=== PATIENT | male | born 1985 | race Caucasian/White ===

== ENCOUNTER 2018-06-20 08:22 | Inpatient (IN) | payer OTHER ==
[~2018-06-20] VITALS: Ht 154.9 cm; Wt 75.4 kg
--- OUTSIDE RECORDS SUMMARY | 2018-06-20 08:24 | XMS REPORT | Clinical Summary ---
Author Author [facility] Address Unknown Phone Unavailable Care Team Providers Care Farmer General Name Role Phone PCP Unavailable Allergies Not on File Medications Not on file Active Problems Not on file Social History Date Tobacco Use Types Packs/Day Years Used Never Assessed Sex Assigned at Date Recorded Not on file Industry Job Start Date Occupation Not on file Not on file Not on file Travel End Travel History Travel Start No recent travel history available. Last Filed Vital Signs Not on file Plan of Treatment Not on file Results Not on fileafter 06/19/2017
[2018-06-20] MEDS ORDERED: PANTOPRAZOLE 40 MG 10ML VIAL IV STA (08:30)
[2018-06-20] MEDS ORDERED: DONNATAL/LIDOCAINE/MAALOX 30 ML SUSP PO ONE (08:30)
[2018-06-20] MEDS ORDERED: SODIUM CHLORIDE 0.9% 1000ML 1,000 ML IV STA (08:30)
[2018-06-20 09:02] LABS: BASOPHILS % 0.2 % (0.0-1.0); BILIRUBIN,URINE NEGATIVE (NEGATIVE); CLARITY,URINE SL CLOUDY (CLEAR); COLOR,URINE YELLOW (YELLOW); EOSINOPHILS % 0.1 % (0.0-6.0); HEMATOCRIT 47.2 % (38.2-49.6); HEMOGLOBIN 16.9 g/dL (14.0-18.0); KETONES,URINE NEGATIVE (NEGATIVE); LEUKOCYTE ESTERASE ,URINE NEGATIVE (NEGATIVE); LYMPHOCYTES # (AUTO) 0.9 (1.0-3.2); LYMPHOCYTES % 5.6 % (18.0-39.1); MEAN CORPUSCULAR HEMOGLOBIN 33.1 pg (28-32); MEAN CORPUSCULAR HGB CONC 35.8 g/dL (31-35); MEAN CORPUSCULAR VOLUME 92.4 fL (81-99); MONOCYTES # (AUTO) 0.4 (0.2-0.8); MONOCYTES % 2.3 % (4.4-11.3); NEUTROPHILS % 91.3 % (38.7-80.0); NITRITE,URINE NEGATIVE (NEGATIVE); PLATELET COUNT 292 x10e3/uL (140-360); PROTEIN,URINE DIPSTICK NEGATIVE (NEGATIVE); RED BLOOD COUNT 5.11 x10e6/uL (4.3-5.7); RED CELL DISTRIBUTION WIDTH 13.2 % (11.7-14.4); URINE UROBILINOGEN 0.2 mg/dL (0.2 - 1)
[2018-06-20 09:15] LABS: BACTERIA,URINE RARE /HPF; EPITHELIAL CELLS,URINE RARE /LPF; WBC,URINE (MAN) 0-5 /HPF (0-5)
--- NOTE | 2018-06-20 09:20 | Diagnostic Imaging Report ---
Frontal and lateral views of the chest. HISTORY: Coughing up blood, chest pain at 4:00 AM COMPARISON: None available. DISCUSSION: Soft tissue attenuation partially limits sensitivity of the exam. Lungs: Low lung volumes result in bibasilar vascular crowding, accentuation of the pulmonary interstitial markings, central pulmonary vasculature, and the cardiac silhouette. Allowing for these limitations, the findings are as follows: Diffuse bilateral symmetric increase interstitial and patchy airspace opacities. Pleura: No pleural effusion or pneumothorax. Heart and mediastinum: The cardiac silhouette and central pulmonary vasculature are enlarged. Bones and soft tissues: On the lateral view, mild age-indeterminate anterior wedge compression deformity of a vertebral body near the thoracolumbar junction. IMPRESSION: Bilateral symmetric patchy interstitial and airspace opacities in the setting of cardiomegaly and central pulmonary vascular congestion, differential considerations include: volume overload resulting in moderate pulmonary edema, pulmonary hemorrhage given the provided history, and multifocal/atypical pneumonia. Signed by: Dr. Darren Grider D.O., M.M.M. on 06/20/2018 9:17 AM
[2018-06-20] MEDS ORDERED: LIDOCAINE VISC 2% SOLN 15 ML UDC ONE (09:28)
[2018-06-20] MEDS ORDERED: MAGNESIUM/ALUMINUM/SIMETHICONE 30 ML UDC ONE (09:28)
[2018-06-20] MEDS ORDERED: BELLADONNA ALK/PHENOBARBITAL 5 ML UDC ONE (09:28)
[2018-06-20 09:43] LABS: ALANINE AMINOTRANSFERASE 41 IU/L (0-55); ALBUMIN 3.4 g/dL (3.5-5.0); ALKALINE PHOSPHATASE 76 IU/L (40-150); BLOOD UREA NITROGEN 17 mg/dL (7-26); BUN/CREATININE RATIO 13 (6-25); CALCIUM 8.6 mg/dL (8.4-10.2); CARBON DIOXIDE 20 mmol/L (22-29); CHLORIDE 107 mmol/L (98-107); CREATININE, SERUM 1.27 mg/dL (0.72-1.25); EST GLOMERULAR FILTRATION RATE > 60 ML/MIN (60-); GLUCOSE 121 mg/dL (74-118); LIPASE 32 U/L (8-78); SODIUM 137 mmol/L (136-145)
--- NOTE | 2018-06-20 12:34 | Diagnostic Imaging Report ---
EXAM: CT of the abdomen and pelvis WITH contrast HISTORY: Vomiting blood, query upper GI bleed, diarrhea, cough COMPARISON: None available. TECHNIQUE: The abdomen and pelvis were scanned utilizing a multidetector helical scanner. Coronal and sagittal reformats are provided. PROTOCOL: Routine IV CONTRAST: 100 cc of Isovue-370. ORAL CONTRAST: Water RADIATION DOSE: Total DLP: 636.59 mGy*cm Estimated effective dose: (DLP x 0.015 x size factor) Dose modulation, iterative reconstruction, and/or weight based adjustment of the mA/kV was utilized to reduce the radiation dose to as low as reasonably achievable. COMPLICATIONS: None FINDINGS: Motion artifact partially limits sensitivity and specificity of the exam. LOWER THORAX: Prominent patchy left lung base interstitial and airspace opacities, in a tree-in-bud type configuration. Low density fluid within the distal esophagus. HEPATOBILIARY: No mass. Diffusely decreased attenuation of the liver relative to the spleen. No biliary dilation. No stone. SPLEEN: No splenomegaly. Multiple densities, likely calcified granulomas. PANCREAS: No focal masses or ductal dilatation. ADRENALS: No discrete adrenal nodule. KIDNEYS/URETERS: A punctate calcific density near the inferior pole of the left kidney. No hydronephrosis or definite solid mass lesions. PELVIC ORGANS/BLADDER: The visualized pelvic organs appear unremarkable. GI TRACT: No bowel dilation. Questionable mild thickening of the distal esophageal wall. The stomach is partially decompressed, which limits evaluation. The appendix is normal. PERITONEUM / RETROPERITONEUM: No free air or fluid. LYMPH NODES: No pathologically enlarged lymph node. VESSELS: Unremarkable. BONES: No aggressive osseous lesion or acute fracture. SOFT TISSUES: Unremarkable. IMPRESSION: 1. Left lung base patchy interstitial and airspace opacities, consider atypical pneumonia, pulmonary hemorrhage, and/or aspiration in the appropriate setting. 2. Questionable mild wall thickening of the distal esophagus, which may reflect a nonspecific esophagitis. 3. Probable gastroesophageal reflux. 4. Hepatic steatosis. Signed by: Dr. Darren Grider D.O., M.M.M. on 06/20/2018 12:31 PM
[2018-06-20] MEDS ORDERED: SODIUM CHLORIDE 0.9% 50ML 50 ML ONE (12:40)
[2018-06-20] MEDS ORDERED: IOPAMIDOL 370 MG/ML 200 ML INFUS..BTL INJ ONE (12:40)
--- NOTE | 2018-06-20 13:03 | Diagnostic Imaging Report ---
CT CHEST WITHOUT CONTRAST HISTORY: Throwing up blood, pulmonary hemorrhage COMPARISON: Chest radiograph June 20, 2018, CT of the abdomen and pelvis June 20, 2018. TECHNIQUE: CT scan of the chest WITHOUT intravenous contrast, using standard protocol. The chest was scanned utilizing a multidetector helical scanner from the apex to the level of the adrenal glands. Coronal and sagittal reformats are provided. IV CONTRAST: None, which limits evaluation of the vascular structures, mediastinum and soft tissues. RADIATION DOSE: Total DLP: 469.13 mGy*cm Dose modulation, iterative reconstruction, and/or weight based adjustment of the mA/kV was utilized to reduce the radiation dose to as low as reasonably achievable. COMPLICATIONS: None FINDINGS: Motion artifact partially limits sensitivity and specificity of the exam. Lines/tubes: None. Lungs and Airways: Patchy interstitial and predominantly groundglass opacities in a tree-in-bud type configuration, involving the left upper lobe, left lower lobe, and to a lesser extent central aspect of the right middle lobe. Pleura: No effusion or pneumothorax. Heart and mediastinum: The distal esophageal wall again appears thickened. Abdomen: Limited nonenhanced views of the upper abdomen, please refer to the CT of the abdomen from the same date. Coarse calcifications within the spleen, compatible with remote granulomatous disease/infection. Hepatic steatosis. Lymph nodes: A 1.1 cm upper peritracheal lymph node (series 2 image 26). Vessels: Appears unremarkable, within the limitations of this exam. Bones: No acute osseous lesion identified. Soft tissues: Otherwise, unremarkable. IMPRESSION: 1. Left lung predominant patchy interstitial and airspace opacities, consider atypical pneumonia and/or pulmonary hemorrhage. Aspiration appears much less probable given the distribution within the lungs. 2. Thickened appearance of the distal esophageal wall, suggestive of a nonspecific esophagitis. 3. Splenic calcifications compatible with remote granulomatous disease/infection. 4. A 1.1 cm upper paratracheal lymph node, which is likely reactive given the pulmonary findings. 5. Hepatic steatosis. Signed by: Rasta Cabral.O., M.M.M. on 06/20/2018 1:00 PM
[2018-06-20] MEDS ORDERED: CEFTRIAXONE SOD 1 GRAM/0.9% SOD CHL 50ML BAG IV SCH (13:30)
[2018-06-20] MEDS ORDERED: ASPIRIN 81 MG CHEW TAB PO ONE (13:30)
[2018-06-20] MEDS ORDERED: AZITHROMYCIN 500MG/SOD CHL 0.9% 250ML BAG IV SCH (13:30)
[2018-06-20] MEDS ORDERED: LEVOFLOXACIN 750MG/D5W 150ML IV SCH (13:30)
[2018-06-20] MEDS ORDERED: AZITHROMYCIN 500MG/NS 250 ML 250 ML IV SCH (13:45)
[2018-06-20] MEDS ORDERED: ACETAMINOPHEN 1000 MG/100 ML IV STA (13:53)
[2018-06-20] MEDS: CEFTRIAXONE SOD 1 GM/NS 50 ML 50 ML IV SCH (13:55)
[2018-06-20] MEDS ORDERED: LEVOFLOXACIN 750MG/D5W 150ML 150 ML IV SCH (14:00)
[2018-06-20 14:09] LABS: CREATINE KINASE 100 IU/L (30-200)
--- OUTSIDE RECORDS SUMMARY | 2018-06-20 14:26 | XMS REPORT | Clinical Summary ---
Author Author [facility] Address Unknown Phone Unavailable Care Team Providers Care Automotive Repair Technician Name Role Phone PCP Unavailable Allergies Not [...]
--- OUTSIDE RECORDS SUMMARY | 2018-06-20 14:26 | XMS REPORT ---
Author Author [facility] Address Unknown Phone Unavailable Care Team Providers Care Wrapper Sizer Name Role Phone Mary Jo RINCON Unavailable Unavailable Problems This patient has no known problems. Allergies, Adverse Reactions, Alerts This patient has no known allergies or adverse reactions. Medications This patient has no known medications. Results Test Description Test Time Test Comments Text Results Atomic Results Result Comments CT CHEST WO 2018-06-20 12:42:00 [facility] [address] [address] Patient Name: CHANTALE ROMERO MR #: [id number] : 1985 Age/Sex: 32/M Req #: [id number] Adm Physician: Ordered by: MAMADOU RINCON MD Report #: [id number] Location: ER Room/Bed: Procedure: [id number] CT/CT CHEST WO Exam Date: 06/20/18 Exam Time: 1210 REPORT STATUS: Signed CT CHEST WITHOUT CONTRAST HISTORY: Throwing up blood, pulmonary hemorrhage COMPARISON: Chest radiograph June 20, 2018, CT of the abdomen and pelvis June 20, 2018. TECHNIQUE: CT scan of the chest WITHOUT intravenous contrast, using standard protocol. The chest was scanned utilizing a multidetector helical scanner from the apex to the level of the adrenal glands. Coronal and sagittal reformats are provided. IV CONTRAST: None, which limits evaluation of the vascular structures, mediastinum and soft tissues. RADIATION DOSE: Total DLP: 469.13 mGy*cm Dose modulation, iterative reconstruction, and/or weight based adjustment of the mA/kV was utilized to reduce the radiation dose to as low as reasonably achievable. COMPLICATIONS: None FINDINGS: Motion artifact partially limits sensitivity and specificity of the exam. Lines/tubes: None. Lungs and Airways: Patchy interstitial and predominantly groundglass opacities in a tree-in-bud type configuration, i nvolving the left upper lobe, left lower lobe, and to a lesser extent central aspect of the right middle lobe. Pleura: No effusion or pneumothorax. Heart and mediastinum: The distal esophageal wall again appears thickened. Abdomen: Limited nonenhanced views of the upper abdomen, please refer to the CT of the abdomen from the same date. Coarse calcifications within the sp genesis, compatible with remote granulomatous disease/infection. Hepatic steatosis. Lymph nodes: A 1.1 cm upper peritracheal lymph node (series 2 image 26). Vessels: Appears unremarkable, within the limitations of this exam. Bones: No acute osseous lesion identified. Soft tissues: Otherwise, unremarkable. IMPRESSION: 1. Left lung predominant patchy interstitial and airspace opacities, consider atypical pneumonia and/or pulmonary hemorrhage. Aspiration appears much less probable given the distribution within the lungs. 2. Thickened appearance of the distal esophageal wall, suggestive of a nonspecific esophagitis. 3. Splenic calcifications compatible with remote granulomatous disease/infection. 4. A 1.1 cm upper paratracheal lymph node, which is likely reactive given the pulmonary findings. 5. Hepatic steatosis. Signed by: Brain CabralO., M.M.M. on 06/20/2018 1:00 PM Dictated By: LISET GRIDER DO 1300 Transcribed By: CAROLINE on 06/20/18 1300 COPY TO: MAMADOU RINCON MD CT ABDOMEN/PELVIS W 2018-06-20 12:23:00 [address] [address] Patient Name: CHANTALE ROMERO MR #: [id number] : 1985 Age/Sex: 32/M Req #: [id number] Adm Physician: Ordered by: MAMADOU RINCON MD Report #: [id number] Location: Room/Bed: Procedure: [id number] CT/CT ABDOMEN/PELVIS W Exam Date: 06/20/18 Exam Time: 1115 REPORT STATUS: Signed EXAM: CT of the abdomen and pelvis WITH contrast HISTORY: Vomiting blood, query upper GI bleed, diarrhea, cough COMPARISON: None available. TECHNIQUE: The abdomen and pelvis were scanned utilizing a multidetector helical scanner. Coronal and sagittal reformats are provided. PROTOCOL: Routine IV CONTRAST: 100 cc of Isovue- 370. ORAL CONTRAST: Water RADIATION DOSE: Total D LP: 636.59 mGy*cm Estimated effective dose: (DLP x 0.015 x size factor) Dose modulation, iterative reconstruction, and/or weight based adjustment of the mA/kV was utilized to reduce the radiation dose to as low as reasonably achievable. COMPLICATIONS: None FINDINGS: Motion artifact partially limits sensitivity and specificity of the exam. LOWER THORAX: Prominent patchy left lung base interstitial and airspace opacities, in a tree-in-bud type configuration. Low density fluid within the distal esophagus. HEPATOBILIARY: No mass. Diffusely decreased attenuation of the liver relative to the spleen. No biliary dilation. No stone. SPLEEN: No splenomegaly. Multiple densities, likely calcified granulomas. PANCREAS: No focal masses or ductal dilatation. ADRENALS: No discrete adrenal nodule. KIDNEYS/URETERS: A punctate calcific density near the inferior pole of the left kidney. No hydronephrosis or definite solid mass lesions. PELVIC ORGANS/BLADDER: The visualized pelvic organs appear unremarkable. GI TRACT: No bowel dilation. Questionable mild thickening of the distal esophageal wall. The stomach is partially decompressed, which limits evaluation. The appendix is normal. PERITONEUM / RETROPERITONEUM: No free air or fluid. LYMPH NODES: No pathologically enlarged lymph node. VESSELS: Unremarkable. BONES: No aggressive osseous lesion or acute fracture. SOFT TISSUES: Unremarkable. IMPRESSION: 1. Left lung base patchy interstitial and airspace opacities, consider atypical pneumonia, pulmonary hemorrhage, and/or aspiration in the appropriate setting. 2. Questionable mild wall thickening of the distal esophagus, which may reflect a nonspecific esophagitis. 3. Probable gastroesophageal reflux. 4. Hepatic steatosis. Signed by: Dr. Liset Grider D.O., M.M.M. on 06/20/2018 12:31 PM Dictated By: LISET GRIDER DO 1231 Transcribed By: CAROLINE on 06/20/18 1231 COPY TO: MAMADOU RINCON MD CHEST 2 VIEWS 2018-06-20 09:11:00 [address] [address] Patient Name: CHANTALE ROMERO MR #: [id number] : 1985 Age/Sex: 32/M Req #: [id number] Adm Physician: Ordered by: MAMADOU RINCON MD Report #: [id number] Location: ER Room/Bed: Procedure: [id number] DX/CHEST 2 VIEWS Exam Date: Exam Time: REPORT STATUS: Signed Frontal and lateral views of the chest. HISTORY: Coughing up blood, chest pain at 4:00 AM COMPARISON: None available. DISCUSSION: Soft tissue attenuation partially limits sensitivity of the exam. Lungs: Low lung volumes result in bibasilar vascular crowding, accentuation of the pulmonary interstitial markings, central pulmonary vasculature, and the cardiac silhouette. Allowing for these limitations, the findings are as follows: Diffuse bilateral symmetric increase interstitial and patchy airspace opacities. Pleura: No pleural effusion or pneumothorax. Heart and mediastinum: The cardiac silhouette and central pulmonary vasculature are enlarged. Bones and soft tissues: On the lateral view, mild age- indeterminate anterior wedge compression deformity of a vertebral body near the thoracolumbar junction. IMPRESSION: Bilateral symmetric patchy interstitial and airspace opacities in the setting of cardiomegaly and central pulmonary vascular congestion, differential considerations include: volume overload resulting in moderate pulmonary edema, pulmonary hemorrhage given the provided history, and multifocal/atypical pneumonia. Signed by: Dr. Liset Grider D.O., M.M.M. on 06/20/2018 9:17 AM Dictated By: LISET GRIDER DO 6 Transcribed By: CAROLINE on 06/20/18916 COPY TO: MAMADOU RINCON MD
[2018-06-20 15:55] VITALS: BP 107/60
--- NOTE | 2018-06-20 16:16 | NUR ---
pt arrived to unit resp even and unlabored at this time, pt has family member at bedside, pt no distress noted at this time, pt able to make some needs noted, pt oriented to room, and call light, bed in lowest position, rails up times 2. will cont to monitor.
[2018-06-20 19:00] VITALS: BP 103/60
--- NOTE | 2018-06-20 19:23 | NUR ---
call to family member for pt hx , and family hx, sister here. to give history
--- NOTE | 2018-06-20 19:29 | NUR ---
report given to oncoming nurse. for continued care . pt stable
[2018-06-20] MEDS ORDERED: ACETAMINOPHEN 325 MG TAB PO ONE (19:45)
[2018-06-20] MEDS ORDERED: SODIUM CHLORIDE 0.9% 250ML 250 ML ONE (19:56)
[2018-06-20] MEDS: LORAZEPAM INJ 2 MG/ML VIAL IV PRN (20:06)
[2018-06-20 20:25] VITALS: BP 103/60
[2018-06-21] MEDS: ALBUTEROL/IPRATROPIUM 3 ML NEB NEB SCH ×4 (00:20→18:55)
[2018-06-21] MEDS: ACETAMINOPHEN 325 MG TAB PO PRN ×3 (04:41→21:39)
[2018-06-21 06:04] VITALS: BP 119/55
[2018-06-21 06:23] LABS: BASOPHILS % 0.4 % (0.0-1.0); EOSINOPHILS % 0.1 % (0.0-6.0); HEMATOCRIT 42.4 % (38.2-49.6); HEMOGLOBIN 15.2 g/dL (14.0-18.0); LYMPHOCYTES # (AUTO) 0.4 (1.0-3.2); LYMPHOCYTES % 4.1 % (18.0-39.1); MEAN CORPUSCULAR HGB CONC 35.8 g/dL (31-35); MEAN CORPUSCULAR VOLUME 92.2 fL (81-99); MONOCYTES # (AUTO) 0.4 (0.2-0.8); MONOCYTES % 3.9 % (4.4-11.3); PLATELET COUNT 220 x10e3/uL (140-360); RED CELL DISTRIBUTION WIDTH 13.3 % (11.7-14.4)
[2018-06-21 06:43] LABS: CREATINE KINASE MB 0.3 ng/mL (0-5.0)
--- NOTE | 2018-06-21 06:55 | Diagnostic Imaging Report ---
CHEST SINGLE (PORTABLE), 06/21/2018 5:00 AM Technique: CHEST SINGLE (PORTABLE) Comparison: CT previous day Clinical history: Pneumonia Findings: See Impression Impression: Limited by portable technique and soft tissue attenuation. 1. Lines/Tubes: None 2. Cardiomediastinal silhouette likely normal for technique. 3. Patchy predominantly left lung opacities in keeping with pneumonia. No significant effusion or pneumothorax. Signed by: Dr Jackelyn Rodriguez MD on 06/21/2018 6:52 AM
[2018-06-21 06:58] LABS: ANION GAP 14.7 mmol/L (8-16); CALCIUM 8.3 mg/dL (8.4-10.2); CREATININE, SERUM 1.43 mg/dL (0.72-1.25); POTASSIUM 3.7 mmol/L (3.5-5.1)
[2018-06-21 07:40] VITALS: BP 120/62
[2018-06-21 08:25] VITALS: BP 120/62
[2018-06-21 12:17] VITALS: BP 141/93
[2018-06-21] MEDS: CEFTRIAXONE SOD 1 GM/NS 50 ML 50 ML IV SCH (13:15)
--- NOTE | 2018-06-21 13:24 | NUR ---
Patient's heart rate elevated at 115. Patient is complaining of chest discomfort. Will notify Dr. Zimmerman. Ordering stat EKG.
[2018-06-21] MEDS: AZITHROMYCIN 500MG/NS 250 ML 250 ML IV SCH (14:00)
--- NOTE | 2018-06-21 14:36 | NUR ---
Dr. Zimmerman here to see the patient at the bedside.
[2018-06-21 16:01] VITALS: BP 98/54
[2018-06-21] MEDS: LEVOFLOXACIN 750MG/D5W 150ML 150 ML IV SCH (21:29)
[2018-06-21] MEDS: LORAZEPAM INJ 2 MG/ML VIAL IV PRN (21:39)
--- NOTE | 2018-06-21 23:14 | Consultation ---
DATE OF CONSULTATION: June 21, 2018 PULMONARY MEDICINE CONSULT REFERRING PHYSICIAN: Dr. Devyn Zimmerman. REASON FOR REFERRAL: Pneumonia. HISTORY: Mr. Griffin is a pleasant 32-year-old gentleman with pneumonia. Patient was admitted to [facility] on the previous day with shortness of breath. Patient was having trouble expectorating. Patient is not a good historian as he has mental delay. Patient with possible allergies in the past. No definite asthma. He is on no breathing medicines. He is on no home oxygen. He is not a smoker in the past and no occupational exposures known. Patient does get intermittent nose bleeding about once a month possibly where the blood drips. No known inciting factors noted by the family. The patient recently may have had some nose bleeding, but it is unclear. He came to the emergency room and it was seen he has much greater than right patchy opacity spread throughout the lungs in a pattern most suggestive of pneumonia. I am consulted. PAST MEDICAL HISTORY: Trisomy 21, possible hypertension, reported allergies. MEDICATIONS: Reviewed per electronic record. Current medications include Levaquin antibiotic, lorazepam intermittently and nebulized treatments. ALLERGIES: ARIPIPRAZOLE IS THE ONLY MEDICINE. SOCIAL HISTORY: There is no smoking. No drinking. No drugs. Patient lives with his ?aunt/cousin? as this person was adopted into the family, not a biologic family. Patient's aunt who raised him is present at bedside during my evaluation and tells me the patient's parents long ago. Family History: Noncontributory to this. REVIEW OF SYSTEMS: Cannot get reliably as he has a mental delay. OBJECTIVE: VITAL SIGNS: 102 degrees temperature. Other vitals noted per electronic records. Heart rate some times 120s. GENERAL: He does not look in any juliette distress. Generally calm, talking in bed, does not look toxic. HEENT: Normocephalic. He has Down's facies. NECK: Supple. Throat midline. LUNGS: Bilateral air entry with limited exam. No juliette rales. No rhonchi. No wheezes right now. CARDIOVASCULAR: S1, S2. No murmurs, rubs, or gallops. ABDOMEN: Soft, nontender. EXTREMITIES: No clubbing, no cyanosis, there is no edema. INTEGUMENT: No rash, no purpura. Tattoos on him. LABS: Sodium 134, potassium 3.7, BUN 11, creatinine 1.4. White count 9.8, hematocrit 42, platelets 220. IMPRESSION AND PLAN 1. Abnormal chest radiography, most suggestive of pneumonia. 2. Febrile syndrome/treat for sepsis. 3. History of recurrent nosebleeds/epistaxis. 4. Recent episodes of retching, cannot rule out a chemical pneumonitis. 5. Down's syndrome. 6. Obesity, cannot rule out hypoventilation/sleep apnea syndrome. Continue bronchodilators. Continue antibiotics for this possible community-acquired pneumonia. Follow up his eating habits and continue swallow evaluation if needed. I have counseled the family in regards to the nosebleed. In the future, we can try humidification and possibly mupirocin ointment if needed to prevent the nosebleeds. Patient will get benefit from outpatient sleep study. Thank you very much, Dr. Zimmerman, for the consult. Please call for questions. Job#: [id number] OMAR
[2018-06-22] MEDS: ALBUTEROL/IPRATROPIUM 3 ML NEB NEB SCH ×4 (01:00→19:30)
[2018-06-22] MEDS: ACETAMINOPHEN 325 MG TAB PO PRN (05:50)
[2018-06-22 06:09] VITALS: BP 118/55
--- NOTE | 2018-06-22 07:16 | NUR ---
Notified by lab that rapid flu test is positive. Called dr hernandez. Orders received and implemented. Patient put on droplet isolation.
[2018-06-22] MEDS: AZITHROMYCIN 500MG/NS 250 ML 250 ML IV SCH (09:00)
[2018-06-22 09:01] VITALS: BP 94/55
[2018-06-22 09:45] VITALS: BP 94/55
[2018-06-22] MEDS: OSELTAMIVIR PHOSPHATE 75 MG CAP PO SCH ×2 (09:45→17:40)
--- NOTE | 2018-06-22 09:46 | NUR ---
ATTEMPTED MULTIPLE TIMES TO SPEAK WITH PATIENT REGARDING USE OF ANTIBIOTICS. PATIENT REPEATEDLY REFUSED MORNING DOSE OF AZITHROMYCIN. PATIENT REFUSES TO LET ME ACCESS THE PIV AT ALL.
[2018-06-22 12:09] VITALS: BP 96/60
[2018-06-22] MEDS: CEFTRIAXONE SOD 1 GM/NS 50 ML 50 ML IV SCH (13:40)
--- NOTE | 2018-06-22 15:05 | Progress Note ---
DATE: June 22, 2018 PULMONARY MEDICINE PROGRESS NOTE SUBJECTIVE: Mr. Griffin was seen and examined at bedside. He continues to have steady neurologic evaluation. He is not in respiratory distress right now. His influenza assay did come back positive last evening. Patient remains tolerant of antibiotics. REVIEW OF SYSTEMS: Cannot get reliably as he is altered. OBJECTIVE VITAL SIGNS: Afebrile. Vital signs are better today with less tachycardia with heart rate 84 and no fevers now. CARDIOVASCULAR: S1, S2. No murmurs, rubs, or gallops. ABDOMEN: Soft, nontender. EXTREMITIES: No clubbing. No cyanosis. No edema. INTEGUMENT: No rash. No purpura. IMPRESSION 1. Acute influenza A. 2. Community-acquired pneumonia, atypical influenza suggestive. 3. Obesity. 4. Probable hypoventilation/sleep apnea syndrome. PLAN: Continue IV antibiotics. DVT prophylaxis is ongoing. Tamiflu for 5 days at least. Continue contact droplet precautions. Job#: [id number] RIN
[2018-06-22] MEDS ORDERED: ENOXAPARIN SOD INJ 40 MG/0.4 ML SYR SC SCH (17:00)
[2018-06-22] MEDS: ENOXAPARIN SOD INJ 40 MG/0.4 ML SYR SC SCH (17:00)
[2018-06-22 20:55] VITALS: BP 93/56
[2018-06-22] MEDS: LEVOFLOXACIN 750MG/D5W 150ML 150 ML IV SCH (20:59)
[2018-06-23] MEDS: ALBUTEROL/IPRATROPIUM 3 ML NEB NEB SCH ×4 (03:15→19:49)
--- NOTE | 2018-06-23 03:40 | NUR ---
Patient complained of chest pain, vitals stable, notified physician, new ordered received.
[2018-06-23 05:15] LABS: BASOPHILS % 0.2 % (0.0-1.0); HEMATOCRIT 42.3 % (38.2-49.6); HEMOGLOBIN 14.8 g/dL (14.0-18.0); LYMPHOCYTES # (AUTO) 1.3 (1.0-3.2); LYMPHOCYTES % 26.9 % (18.0-39.1); MEAN CORPUSCULAR HEMOGLOBIN 32.7 pg (28-32); MEAN CORPUSCULAR VOLUME 93.4 fL (81-99); MONOCYTES # (AUTO) 0.5 (0.2-0.8); MONOCYTES % 10.5 % (4.4-11.3); NEUTROPHILS % 62.2 % (38.7-80.0); PLATELET COUNT 176 x10e3/uL (140-360); RED BLOOD COUNT 4.53 x10e6/uL (4.3-5.7); RED CELL DISTRIBUTION WIDTH 13.1 % (11.7-14.4)
[2018-06-23 05:59] LABS: ALANINE AMINOTRANSFERASE 34 IU/L (0-55); ALKALINE PHOSPHATASE 51 IU/L (40-150); ANION GAP 15.4 mmol/L (8-16); BLOOD UREA NITROGEN 17 mg/dL (7-26); BUN/CREATININE RATIO 13 (6-25); CALCIUM 7.8 mg/dL (8.4-10.2); CARBON DIOXIDE 18 mmol/L (22-29); CHLORIDE 107 mmol/L (98-107); CREATININE, SERUM 1.28 mg/dL (0.72-1.25); EST GLOMERULAR FILTRATION RATE > 60 ML/MIN (60-); GLUCOSE 131 mg/dL (74-118); POTASSIUM 3.4 mmol/L (3.5-5.1); SODIUM 137 mmol/L (136-145)
--- NOTE | 2018-06-23 07:08 | Diagnostic Imaging Report ---
EXAM: XR CHEST 1 VIEW DATE: 06/23/2018 5:00 AM INDICATION: Pneumonia COMPARISON: 06/21/2018, no report available FINDINGS: Lines and Tubes: None Heart and Mediastinum: Accentuated by low lung voids. Lungs and Pleura: Patchy opacities predominantly left mid and lower lung. Bones and Soft Tissues: No acute findings. IMPRESSION: 1. Patchy opacities left mid and lower lung consistent with pneumonia. Signed by: Dr. Max Machado MD on 06/23/2018 7:04 AM
[2018-06-23 08:00] VITALS: BP 93/47
[2018-06-23 09:25] VITALS: BP 93/67
[2018-06-23] MEDS: OSELTAMIVIR PHOSPHATE 75 MG CAP PO SCH ×2 (09:25→17:16)
[2018-06-23] MEDS: AZITHROMYCIN 500MG/NS 250 ML 250 ML IV SCH (09:25)
[2018-06-23 12:00] VITALS: BP 114/58
[2018-06-23] MEDS ORDERED: POTASSIUM CHLORIDE 10MEQ EA PO ONE (13:45)
[2018-06-23] MEDS: LEVOFLOXACIN 500 MG TAB PO SCH (14:31)
[2018-06-23 16:00] VITALS: BP 113/69
[2018-06-23] MEDS ORDERED: METHYLPREDNISOLONE SOD SUCC 125 MG/2ML VIAL IV ONE (16:00)
--- NOTE | 2018-06-23 16:01 | Progress Note ---
DATE: June 23, 2018 PULMONARY MEDICINE PROGRESS NOTE SUBJECTIVE: Mr. Griffin was seen and examined at bedside. He continues to have slow progress. He is not having any recurrence of fevers, 94% oxygen saturation, room air FiO2. REVIEW OF SYSTEMS: Cannot get reliably as he is having mental delay. OBJECTIVE VITAL SIGNS: Afebrile. Vital signs noted per electronic record. GENERAL: No acute distress, calm. HEENT: Normocephalic, atraumatic. Down's facies. NECK: Supple. Throat midline. LUNGS: Bilateral air entry, limited effort. CARDIOVASCULAR: S1, S2. No murmurs, rubs, or gallops. ABDOMEN: Soft, nontender. EXTREMITIES: No clubbing. No cyanosis. There is no edema. INTEGUMENT: No rash. No purpura. LABS: Potassium 3.4, BUN 17, creatinine 1.3. White count 4.7, hematocrit 42, and platelets 176. IMPRESSION 1. Acute influenza A. 2. Bilateral, but left greater than right pneumonitis secondary to influenza. 3. Hypokalemia. 4. Mental delay, Down syndrome. PLAN: Antibiotics have been simplified, which I agree with. Continue Tamiflu and antibiotic for community-acquired pneumonia. DVT prophylaxis is ongoing as there is some risk. Supportive bronchodilators. X-ray was worse, we will give him one dose of steroids. We will follow along closely. Repeat a chest x-ray tomorrow. Job#: [id number] HEMANTH
[2018-06-23] MEDS: ENOXAPARIN SOD INJ 40 MG/0.4 ML SYR SC SCH (17:00)
--- NOTE | 2018-06-23 19:45 | NUR ---
patient received. Patient is resting in bed. Resp even and unlabored. No acute distress noted. Patient denies of any pain or discomfort at this time. call light within reach. instruct to call for assistance. bed low/locked. continue to monitor closely
[2018-06-23 21:11] VITALS: BP 105/72
[2018-06-24] VITALS: BP 105/72
[2018-06-24] MEDS: ALBUTEROL/IPRATROPIUM 3 ML NEB NEB SCH ×4 (01:00→19:00)
--- NOTE | 2018-06-24 07:09 | NUR ---
received pt lying in bed with eyes closed, Resp even and unlabored. call light within reach.
[2018-06-24 07:53] VITALS: BP 110/69
[2018-06-24] MEDS: OSELTAMIVIR PHOSPHATE 75 MG CAP PO SCH ×2 (09:00→17:38)
--- NOTE | 2018-06-24 09:51 | NUR ---
pt refusing all treatment this morning. refused vital sign assessment after multiple attempts. per pets salesperson has refused lab work x3 this morning. patient also refused CXR this am after multiple attempts made. provided teaching on importance of testing, assessments and medication and patient continued to refuse while also stating "I hate people, I swear, I can take care of myself." will continue to monitor and provide teaching.
--- NOTE | 2018-06-24 10:40 | NUR ---
in facility and notified of patient refusing care.
[2018-06-24 12:36] VITALS: BP 110/69
--- NOTE | 2018-06-24 13:16 | Progress Note ---
DATE: June 24, 2018 PULMONARY MEDICINE PROGRESS NOTE SUBJECTIVE: Mr. Griffin was seen and examined at bedside. He continues to have steady progress. Chest x-ray was refused as of today. He is also refusing some medicines. He seems to be either sad or angry. No juliette respiratory distress. REVIEW OF SYSTEMS: Cannot get reliably as there is mental delay. OBJECTIVE VITALS: Afebrile. Vital signs noted per electronic record. GENERAL: In no acute distress. Alert and calm. HEENT: Normocephalic and atraumatic. Down facies. CARDIOVASCULAR: S1 and S2. No murmurs, rubs or gallops. LUNGS: Limited exam due to limited participation. EXTREMITIES: No rash. No edema. IMPRESSION AND PLAN 1. Acute influenza. 2. Pneumonia, most likely due to primary influenza. 3. Mild agitation, behavior disturbances. 4. Mental delay, Down syndrome. I have put in for another chest x-ray tomorrow. Not sure if he will do chest x-ray today. I will try to convince him. Furthermore, continue Tamiflu. Continue antibiotics for community-acquired pneumonia. Will follow along closely. Job#: [id number] VT
[2018-06-24] MEDS: LEVOFLOXACIN 500 MG TAB PO SCH (13:45)
--- NOTE | 2018-06-24 14:04 | Diagnostic Imaging Report ---
EXAM: XR CHEST 1 VIEW INDICATION: Pneumonia. COMPARISON: Chest radiograph 06/23/2018. FINDINGS: Lines and Tubes: None Lungs and Pleura: Persistent patchy opacities predominantly left mid and lower lung. Central vascular congestion with interstitial opacities. Heart and Mediastinum: Unchanged cardiomediastinal silhouette. Bones and Soft Tissues: No acute osseous abnormality. IMPRESSION: Similar appearance of patchy opacities left mid and lower lung consistent with pneumonia. Possible mild superimposed pulmonary interstitial edema. Signed by: Dr. Megan Manning MD on 06/24/2018 2:00 PM
[2018-06-24] MEDS: ENOXAPARIN 30 MG/0.3 ML SYR SC SCH (17:00)
[2018-06-24 20:28] VITALS: BP 114/68
[2018-06-25 00:12] VITALS: BP 117/70
[2018-06-25] MEDS: ALBUTEROL/IPRATROPIUM 3 ML NEB NEB SCH ×5 (01:00→23:41)
--- NOTE | 2018-06-25 07:19 | NUR ---
pt asleep lying on his right side asleep resp even and unlabored, pt arousal to name and touch, pt had no s/s of distress at this time. call light in reach.
[2018-06-25 07:48] VITALS: BP 119/65
[2018-06-25] MEDS: OSELTAMIVIR PHOSPHATE 75 MG CAP PO SCH ×2 (09:00→18:52)
[2018-06-25] MEDS ORDERED: ENOXAPARIN 30 MG/0.3 ML SYR SC SCH (09:00)
[2018-06-25 12:00] VITALS: BP 91/50
--- NOTE | 2018-06-25 13:00 | NUR ---
Dr Zimmerman here to see pt.
--- NOTE | 2018-06-25 13:49 | Progress Note ---
DATE: June 25, 2018 PULMONARY MEDICINE PROGRESS NOTE SUBJECTIVE: Mr. Griffin was seen and examined at bedside. He continues to have slow progress. He remains semi-oppositional and not accepting all treatments. No more high fevers. Kidney still with some dysfunction. Still with a cough that is bothersome. REVIEW OF SYSTEMS: No headaches. No bleeding. OBJECTIVE VITALS: Afebrile. Vital signs noted per electronic record. GENERAL: No acute distress. Alert and calm. HEENT: Normocephalic and atraumatic. Down's facies. NECK: Supple. Throat midline. LUNGS: Bilateral air entry. Few rhonchi. CARDIOVASCULAR: S1 and S2. No murmurs, rubs or gallops. ABDOMEN: Soft and nontender. EXTREMITIES: No clubbing. No cyanosis. There is no edema. INTEGUMENT: No rash. No purpura. LABS: No new updates. IMPRESSION AND PLAN 1. Acute influenza. 2. Influenza pneumonitis. 3. Down syndrome. 4. Mild obesity. At this time, want to continue current treatment. Antibiotics. Tamiflu. DVT prophylaxis ongoing with enoxaparin. Continue to mobilize and promote the patient with a treatment plan. Job#: [id number] KRAIG
--- NOTE | 2018-06-25 14:28 | Diagnostic Imaging Report ---
EXAMINATION: CHEST SINGLE (PORTABLE) INDICATION: Pneumonia ^pneumonia COMPARISON: June 24, 2018 at 1335 hours FINDINGS: Lines and Tubes: None Lungs and Pleura: Persistent patchy opacities predominantly left mid and lower lung. Central vascular congestion with interstitial opacities. Heart and Mediastinum: Unchanged cardiomediastinal silhouette. Bones and Soft Tissues: No acute osseous abnormality. IMPRESSION: Similar appearance of patchy opacities left mid and lower lung consistent with pneumonia. Possible mild superimposed pulmonary interstitial edema. Follow-up imaging is indicated to document clearing. Signed by: Dr. Neil Jalloh M.D. on 06/25/2018 2:25 PM
[2018-06-25] MEDS: LEVOFLOXACIN 500 MG TAB PO SCH (14:37)
--- NOTE | 2018-06-25 15:49 | NUR ---
Called and left messages for Codie Raymond [phone] and Ada Stearns [phone], both are listed on facesheet, to discuss discharge plan. Awaiting callback.
[2018-06-25 16:00] VITALS: BP 94/50
--- NOTE | 2018-06-25 16:49 | NUR ---
CASE MANAGEMENT INITIAL ASSESSMENT Full Time to bedside to discuss plan of care with patient/family. CM/SW role and care transitions discussed. Anticipated discharge plan discussed along with duration of care. CM/SW discussed patients right to make decisions in care. CM/SW work hours given. Pt's aunt Codie Raymond returned phone call. Patient lives: with his aunt Ada Stearns Admit/Transfer: thru ED Hospital/ER visits since last admit: 0 POA/Emergency contact: Codie Raymond [phone] Current/Previous Home Health: none PCP/Follow-up Care: does not have PCP, but Ms. Raymond stated that if he needs to follow up with a doctor, she will make an appointment for him. May follow up with Dr. Zimmerman Advised her of following up with a doctor within 7 days of discharge. Current/Previous DME: none Medications (referring to index hospitalization or the first time you were in the hospital) a. Were changes made in your medications when you were in the hospital on [date of index hospitalization]? no b. Did you understand the changes? n/a c. Were you able to obtain your new medications right away? n/a d. Were you able to take your medications like the doctor wanted you to? n/a e. Did the hospital give you an accurate, easy to understand list of medications when you left? n/a Scale of 1-10 how comfortable does patient feel with disease management in outpatient settin Other Services: none Employment Status: unemployed Areas of Concerns: PNA Referral Needs: none Education Needs: medical management IMM/MOTA given and signed (if applicable): n/a Goal for discharge: home CM/SW left business card at the bedside with contact information. Name and number was also written on the patients whiteboard. Patient verbalized understanding of discussion. CM will follow-up with ongoing discharge and transition of care needs.
[2018-06-25] MEDS: ENOXAPARIN 30 MG/0.3 ML SYR SC SCH (17:00)
--- NOTE | 2018-06-25 19:18 | NUR ---
report given to oncoming nurse for continued care.
[2018-06-25 20:37] VITALS: BP 109/71
[2018-06-26 00:30] VITALS: BP 139/58
[2018-06-26] MEDS: ALBUTEROL/IPRATROPIUM 3 ML NEB NEB SCH ×3 (07:00→19:00)
[2018-06-26 08:00] VITALS: BP 85/51
[2018-06-26 10:22] VITALS: BP 116/62
[2018-06-26] MEDS: OSELTAMIVIR PHOSPHATE 75 MG CAP PO SCH ×2 (10:22→17:20)
[2018-06-26 12:00] VITALS: BP 116/62
[2018-06-26] MEDS: LEVOFLOXACIN 500 MG TAB PO SCH (14:27)
[2018-06-26 16:00] VITALS: BP 102/55
[2018-06-26] MEDS: ENOXAPARIN 30 MG/0.3 ML SYR SC SCH (17:00)
--- NOTE | 2018-06-26 22:41 | Progress Note ---
DATE: June 26, 2018 PULMONARY MEDICINE PROGRESS NOTE SUBJECTIVE: Mr. Griffin was seen and examined at bedside. He continues to have steady progress. He has continued oppositional behavior that makes it difficult to treat him. energy to talk now, he is refusing antibiotics. Chest x-ray is still showing significant pneumonia. REVIEW OF SYSTEMS: Cannot get reliably as he is delayed in mentation. OBJECTIVE VITALS: Afebrile. Vital signs noted per the chart record. GENERAL: No acute distress. Alert and calm. HEENT: Normocephalic and atraumatic. Down's facies. NECK: Supple. Throat midline. LUNGS: Bilateral air entry. Few rhonchi. CARDIOVASCULAR: S1 and S2. No murmurs, rubs, or gallops. ABDOMEN: Soft and nontender. EXTREMITIES: No clubbing. No cyanosis. There is no edema. INTEGUMENT: No rash. No purpura. LABS: No new updates. IMPRESSIONS 1. Acute influenza. 2. Pneumonia secondary to influenza. 3. Mental delay. 4. Down syndrome. 5. Hyperkalemia. PLAN: Continue Tamiflu at this time. Antibiotics ongoing with Levaquin. DVT prophylaxis given his DVT risk. Try to convince him to take medicines. Repeat another chest x-ray on other day given recent problems and significant pneumonitis. Job#: [id number]
[2018-06-27] MEDS: ALBUTEROL/IPRATROPIUM 3 ML NEB NEB SCH ×4 (01:00→13:14)
[2018-06-27 01:04] VITALS: BP 108/59
[2018-06-27 06:20] VITALS: BP 110/75
[2018-06-27 07:59] VITALS: BP 100/67
[2018-06-27 08:00] VITALS: BP 100/67
[2018-06-27] MEDS: OSELTAMIVIR PHOSPHATE 75 MG CAP PO SCH (09:26)
--- NOTE | 2018-06-27 10:14 | NUR ---
Spoke to Dr. Zimmerman regarding discharge plan. He stated he did not like the way CXR looked yesterday. Repeating CXR today and will determine if pt is able to discharge.
[2018-06-27] MEDS ORDERED: POTASSIUM CHLORIDE 10MEQ EA PO NR (11:30)
--- NOTE | 2018-06-27 12:23 | Diagnostic Imaging Report ---
EXAMINATION: PA and lateral views of the chest. COMPARISON: 06/25/2018 CLINICAL HISTORY: Pneumonia DISCUSSION: Lungs are well-inflated. Patchy left mid and lower lung airspace opacities are unchanged. No new consolidation or effusion. Stable cardiomediastinal contour. No acute osseous abnormality. IMPRESSION: Persistent patchy opacities in the left mid and lower lung. A follow-up chest radiograph in 6 weeks is suggested, at which point radiographic resolution of multifocal pneumonia would be expected. Signed by: Dr. Lopez Marsh M.D. on 06/27/2018 12:20 PM
[2018-06-27 12:25] LABS: BASOPHILS % 0.5 % (0.0-1.0); EOSINOPHILS % 0.3 % (0.0-6.0); HEMOGLOBIN 16.8 g/dL (14.0-18.0); LYMPHOCYTES # (AUTO) 1.9 (1.0-3.2); LYMPHOCYTES % 31.7 % (18.0-39.1); MEAN CORPUSCULAR HEMOGLOBIN 32.8 pg (28-32); MEAN CORPUSCULAR HGB CONC 35.7 g/dL (31-35); MEAN CORPUSCULAR VOLUME 91.8 fL (81-99); MONOCYTES # (AUTO) 0.9 (0.2-0.8); MONOCYTES % 14.8 % (4.4-11.3); NEUTROPHILS % 51.3 % (38.7-80.0); PLATELET COUNT 223 x10e3/uL (140-360); RED BLOOD COUNT 5.12 x10e6/uL (4.3-5.7); RED CELL DISTRIBUTION WIDTH 12.9 % (11.7-14.4)
[2018-06-27 12:43] LABS: BLOOD UREA NITROGEN 14 mg/dL (7-26); BUN/CREATININE RATIO 13 (6-25); CALCIUM 8.7 mg/dL (8.4-10.2); CARBON DIOXIDE 23 mmol/L (22-29); CHLORIDE 104 mmol/L (98-107); EST GLOMERULAR FILTRATION RATE > 60 ML/MIN (60-); GLUCOSE 86 mg/dL (74-118); SODIUM 137 mmol/L (136-145)
--- NOTE | 2018-06-27 13:21 | Progress Note ---
DATE: June 27, 2018 PULMONARY MEDICINE PROGRESS NOTE SUBJECTIVE: Mr. Griffin was seen and examined at bedside. He is able to sit up. He is eating not too much still. However, he is not showing any juliette respiratory distress right now. He is still having intermittent bothersome cough. REVIEW OF SYSTEMS: No headaches, no bleeding. OBJECTIVE VITAL SIGNS: Afebrile. Vital signs noted per electronic record. GENERALLY: No acute distress, alert and calm. HEENT: Down's facies, nontraumatic. NECK: Supple. Throat midline. LUNGS: Bilateral air entry, a few rhonchi heard. CARDIOVASCULAR: S1 and S2. No murmurs, rubs or gallops. ABDOMINAL: Soft, nontender. EXTREMITIES: No clubbing, no cyanosis. There is no edema. INTEGUMENT: No rash. No purpura. IMPRESSION AND PLAN 1. Acute influenza. 2. Secondary influenza pneumonia. 3. Anorexia. 4. Weakness. 5. Down syndrome. Continue current treatment. Tamiflu ongoing. Levophed ongoing. DVT prophylaxis since he is weak. Will continue to follow up and try to encourage him to eat more and take more of the medicines. Job#: [id number] EV
[2018-06-27] MEDS: LEVOFLOXACIN 500 MG TAB PO SCH (14:37)
--- NOTE | 2018-06-27 15:13 | NUR ---
Read CXR result from today to Dr. Zimmerman. He said ok to discharge home as long as Dr. Cho is ok with it. Dr. Zimmerman left a prescription on the chart for antibiotic. TRISTAN Núñez was informed of above. She will call Dr. Cho.
[2018-06-27 16:00] VITALS: BP 121/70
[2018-06-27] MEDS ORDERED: Ceftin PO (16:24)
== END 2018-06-27 17:27 | disposition home or self-care (01) | DRG 871 ==
LOC: ER 08:22 → ERHOLD 14:24 → MED/SURG2 15:51 → OBSVTOIN 06-22 14:18
DX: A41.89 Other specified sepsis (principal); J09.X1 Influenza due to identified novel influenza A virus with pneumonia; R04.2 Hemoptysis; N17.9 Acute kidney failure, unspecified; J68.0 Bronchitis and pneumonitis due to chemicals, gases, fumes and vapors; R65.20 Severe sepsis without septic shock; Q90.9 Down syndrome, unspecified; E66.9 Obesity, unspecified; Z68.32 Body mass index [BMI] 32.0-32.9, adult; G47.36 Sleep related hypoventilation in conditions classified elsewhere; E87.6 Hypokalemia; F79 Unspecified intellectual disabilities; R45.1 Restlessness and agitation; F91.9 Conduct disorder, unspecified; E87.5 Hyperkalemia
CPT/HCPCS: 36415; 71045; 71046; 71250; 74177; 80048; 80053; 81001; 82550; 82553; 83690; 83880; 84484; 85025; 87400; 93005; 94640; 99284; G0378; J0456; J0696; J1650; J2060; J2930; J7030; J7050; Q9967